=== PATIENT | female | born 1990 | race Caucasian/White ===

== ENCOUNTER 2017-12-18 22:17 | Outpatient (CLI) | payer MEDICAID ==
[2017-12-18] MEDS ORDERED: MAGNESIUM SULFATE 4 GM/100 ML RTUPB IV ONE (22:30)
[2017-12-18] MEDS ORDERED: BETAMET ACET/BETAMET NA INJ 6 MG/1 ML ONE (22:30)
[2017-12-18] MEDS ORDERED: VANCOMYCIN HCL INJ 1000 MG VIAL ONE (22:36)
[2017-12-19] MEDS ORDERED: MAGNESIUM SULFATE 20 GM/500 ML IV PRN (00:33)
[2017-12-19] MEDS ORDERED: MAGNESIUM SULFATE 4 GM/D5W 100 ML IV ONE (00:45)
[2017-12-19] MEDS ORDERED: RINGERS SOLUTION,LACTATED 1,000 ML IV PRN (02:07)
[2017-12-19] MEDS ORDERED: VANCOMYCIN HCL 1,000 MG in DEXTROSE 5%-WATER 250 ML IV SCH (10:00)
== END 2017-12-19 00:33 | disposition short-term general hospital (02) ==
LOC: LC 22:17
PROVIDERS: ATTEND Obstetrics & Gynecology Gynecology
PROC: 4A1HXCZ Monitoring of Products of Conception, Cardiac Rate, External Approach (ICD-10-PCS; principal; 2017-12-18)
DX: O42.913 Preterm premature rupture of membranes, unspecified as to length of time between rupture and onset of labor, third trimester (principal); Z3A.31 31 weeks gestation of pregnancy
CPT/HCPCS: 94760; 96372; 59899; J3475; J0702; J7060; J3370 ×2